=== PATIENT | female | born 1990 | race Asian ===

== ENCOUNTER 2020-06-28 10:08 | Outpatient (CLI) | payer OTHER | END 2020-06-28 10:09 | disposition home or self-care (01) | LOC: CSHULT 10:08 | PROVIDERS: ATTEND Family Medicine | DX: Z34.02 Encounter for supervision of normal first pregnancy, second trimester (principal) | CPT/HCPCS: 76805 ==

== ENCOUNTER 2020-11-10 11:25 | Inpatient (IN) | payer OTHER ==
[2020-11-12] MEDS ORDERED: Lidocaine 2% MPF 10 ML AMP (For Epidural Use) ONE (06:00)
[2020-11-12] MEDS ORDERED: Bupivacaine 0.25% HCL 30 ML VIAL ONE (06:00)
[2020-11-12] MEDS ORDERED: Bupivacaine PF 0.5% 30 ML VIAL ONE (06:00)
[2020-11-12] MEDS ORDERED: Diphenoxylate HCl/Atropine Tablet PO PRN (23:57)
[2020-11-12] MEDS ORDERED: Carboprost 250 MCG/ML AMP IM PRN (23:57)
[2020-11-12] MEDS ORDERED: Lidocaine 1% (PF) 30 ML VIAL SC PRN (23:57)
[2020-11-12] MEDS ORDERED: Misoprostol 200 MCG TAB PR PRN (23:57)
[2020-11-12] MEDS ORDERED: NS w/ Oxytocin 30 units 500 ML IV SCH ×2 (23:57)
[2020-11-12] MEDS ORDERED: HYDROcodone/Acetaminophen 5/325 mg Tablet PO PRN (23:57)
[2020-11-12] MEDS ORDERED: Butorphanol Tartrate 1 MG/ML VIAL SLOW IVP PRN (23:57)
[2020-11-12] MEDS ORDERED: Methylergonovine 0.2 MG/ML VIAL IM PRN (23:57)
[2020-11-12] MEDS ORDERED: Ibuprofen 800 MG TAB PO PRN (23:57)
[2020-11-12] MEDS ORDERED: Acetaminophen 500 MG TAB PO PRN (23:57)
[2020-11-12] MEDS ORDERED: hydrALAZINE 20 MG/ML VIAL SLOW IVP PRN (23:57)
[2020-11-12] MEDS ORDERED: NS w/ Oxytocin 30 units 500 ML IVPB SCH (23:57)
[2020-11-12] MEDS ORDERED: Promethazine HCl 25 MG/ML VIAL IM PRN (23:57)
[2020-11-12] MEDS ORDERED: Ondansetron PF 4 MG/2 ML Vial IVP PRN (23:57)
[2020-11-13] MEDS: Misoprostol 100 MCG TAB PO SCH ×2 (01:12→05:22)
[2020-11-13] MEDS: Lactated Ringer's 1,000 ML IV SCH ×3 (01:17→11:26)
[2020-11-13 01:27] LABS: Hemoglobin 13.1 g/dL (12.0-15.5); Mean Corpuscular HGB CONC 34.1 g/dL (32.0-36.0); Mean Corpuscular Hemoglobin 32.8 pg (27.0-33.0); Mean Platelet Volume 9.8 fl (7.4-10.4); Platelet Count 292 10x3/uL (150-450); RBC Distribution Width 13.2 % (11.5-14.5); White Blood Cell (WBC) Count 11.8 10x3/uL (3.5-10.5)
[2020-11-13 01:34] VITALS: BMI 25.9
[2020-11-13 01:59] LABS: Syphilis Antibody Nonreactive (Nonreactive); Syphilis Antibody Index 0.02 S/CO (<1.00 Non-Reactive)
[2020-11-13 02:00] LABS: Hep B Surf Ag Non-Reactive S/CO (NonReactive)
[2020-11-13 02:57] LABS: HBSAg Index 0.14 S/CO (0-0.99)
[2020-11-13] MEDS ORDERED: Fentanyl 2 mcg/Bup 0.1% Cadd 100 ML ONE (08:44)
[2020-11-13] MEDS ORDERED: ePHEDrine Sulfate 50 MG/10 ML VIAL SLOW IVP PRN (09:34)
[2020-11-13] MEDS ORDERED: Acetaminophen 325 MG TAB PO PRN (09:34)
[2020-11-13] MEDS ORDERED: Ondansetron PF 4 MG/2 ML Vial IVP PRN ×2 (09:34→22:35)
[2020-11-13] MEDS ORDERED: diphenhydrAMINE 50 MG/ML VIAL IVP PRN (09:34)
[2020-11-13] MEDS ORDERED: Lactated Ringer's 500 ML IV PRN (09:34)
[2020-11-13] MEDS ORDERED: Hydrocerin (Eucerin) Cream 120 gm Jar TOP PRN (09:34)
[2020-11-13] MEDS ORDERED: Promethazine HCl 25 MG/ML VIAL IM PRN ×2 (09:34→22:35)
[2020-11-13] MEDS ORDERED: Naloxone HCl 0.4 mg/ml Vial IVP PRN ×2 (09:34)
[2020-11-13] MEDS: Fentanyl 2 mcg/Bupivacaine 0.1% Cassette 100 ML EPIDURAL SCH ×3 (09:45→17:42)
[2020-11-13] MEDS ORDERED: Communication Order-Pharmacy FS SCH (09:45)
[2020-11-13] MEDS ORDERED: Preparation H Ointment 28 GM TUBE PR PRN (22:35)
[2020-11-13] MEDS ORDERED: Milk Of Magnesia 30 ML UDCUP PO PRN (22:35)
[2020-11-13] MEDS ORDERED: Bisacodyl 10 MG SUPP PR PRN (22:35)
[2020-11-13] MEDS ORDERED: NS w/ Oxytocin 30 units 500 ML IV SCH (22:35)
[2020-11-13] MEDS ORDERED: Boostrix 0.5 ML (Tdap) VIAL IM ONE (22:35)
[2020-11-13] MEDS ORDERED: Benzocaine-Menthol 82.5 ML CAN TOP PRN (22:35)
[2020-11-13] MEDS ORDERED: diphenhydrAMINE 25 MG CAP PO PRN (22:35)
[2020-11-13] MEDS ORDERED: HYDROcodone/Acetaminophen 5/325 mg Tablet PO PRN (22:35)
[2020-11-13] MEDS ORDERED: hydrALAZINE 20 MG/ML VIAL SLOW IVP PRN (22:35)
[2020-11-13] MEDS: HYDROcodone/Acetaminophen 5/325 mg Tablet PO PRN (22:42)
[2020-11-13] MEDS ORDERED: Ibuprofen 800 MG TAB PO SCH (22:45)
[2020-11-13] MEDS ORDERED: Docusate Calcium (SURFAK) 240 MG CAP PO SCH (22:45)
[2020-11-14] MEDS: HYDROcodone/Acetaminophen 5/325 mg Tablet PO PRN (01:30)
[2020-11-14] MEDS: Ibuprofen 800 MG TAB PO SCH ×3 (06:13→21:42)
[2020-11-14] MEDS: Misoprostol 100 MCG TAB PO SCH (07:03)
[2020-11-14] MEDS: Ferrous Sulfate 325 MG TAB PO SCH (07:05)
[2020-11-14] MEDS: Prenatal Vitamin 1 TAB PO SCH (07:48)
[2020-11-14] MEDS: Docusate Calcium (SURFAK) 240 MG CAP PO SCH ×2 (07:48→21:42)
[2020-11-15] MEDS: Ibuprofen 800 MG TAB PO SCH (05:32)
[2020-11-15] MEDS: Ferrous Sulfate 325 MG TAB PO SCH (07:31)
[2020-11-15 07:51] VITALS: BP 102/55; TEMP 97.8
[2020-11-15] MEDS: Docusate Calcium (SURFAK) 240 MG CAP PO SCH (08:50)
[2020-11-15] MEDS: Prenatal Vitamin 1 TAB PO SCH (08:50)
[2020-11-15] MEDS: HYDROcodone/Acetaminophen 5/325 mg Tablet PO PRN (13:03)
== END 2020-11-15 13:30 | disposition home or self-care (01) | DRG 806 ==
LOC: EDSTATUS 11-12 09:08 → CSHLD 11-12 23:34 → CSHPP 11-13 23:33
PROVIDERS: ADMIT Family Medicine; ATTEND Family Medicine
PROC: 10E0XZZ Delivery of Products of Conception, External Approach (ICD-10-PCS; principal; 2020-11-13)
PROC: 0KQM0ZZ Repair Perineum Muscle, Open Approach (ICD-10-PCS; 2020-11-13)
PROC: 10D17Z9 Manual Extraction of Products of Conception, Retained, Via Natural or Artificial Opening (ICD-10-PCS; 2020-11-13)
PROC: 10907ZC Drainage of Amniotic Fluid, Therapeutic from Products of Conception, Via Natural or Artificial Opening (ICD-10-PCS; 2020-11-13)
PROC: 3E033VJ Introduction of Other Hormone into Peripheral Vein, Percutaneous Approach (ICD-10-PCS; 2020-11-13)
PROC: 0W8NXZZ Division of Female Perineum, External Approach (ICD-10-PCS; 2020-11-13)
PROC: 3E0P7VZ Introduction of Hormone into Female Reproductive, Via Natural or Artificial Opening (ICD-10-PCS; 2020-11-13)
DX: O70.1 Second degree perineal laceration during delivery (principal); O72.2 Delayed and secondary postpartum hemorrhage; Z37.0 Single live birth; Z3A.40 40 weeks gestation of pregnancy; O43.193 Other malformation of placenta, third trimester; Z20.822 Contact with and (suspected) exposure to COVID-19
CPT/HCPCS: 36415; 51702; 85027; 86780; 86850; 86900; 86901; 87340; J2210; J2590; J3490; S0020